=== PATIENT | male | born 1985 | race Caucasian/White ===

== ENCOUNTER 2019-10-23 20:50 | Inpatient (IN) | payer MEDICARE, MEDICAID, SELFPAY ==
[2019-10-23 20:52] VITALS: BP 183/103; PULSE 98; RESP 18; TEMP 36.6; O2SAT 98; BMI 32.5
--- NOTE | 2019-10-23 21:03 | W.ED.PSYCH ---
HPI - Psych General: Chief Complaint: Psychiatric Symptoms Stated Complaint: mhe Time Seen by Provider: 10/23/19 21:03 Source: patient and family Mode of arrival: ambulatory Limitations: no limitations History of Present Illness: HPI Narrative: Patient is a 34-year-old male who presents to ED today along with his family for complaints of paranoid schizophrenia symptoms and suicidal ideations; patient tells me he has been having worsening auditory and visual hallucinations to the point where last night he was having thoughts of wanting to kill himself; patient tells me at one point he was very controlled with his symptoms (for about a decade) on Haldol, Risperdal, Cymbalta. During that period he got , had 3 children, and held down a steady job. Patient states he got approximately 2 years ago and has slowly spiraled since that time. He has been off of his medications and self-medicating with illicit drug use. Patient knows he needs help and would like to get back on his medications. Associated symptoms: Reports auditory hallucinations, visual hallucinations and suicidal ideation; Deny depression or homicidal ideation Review of Systems Const: Denies: fever or chills Card: Denies: chest pain, palpitations, lightheadedness or syncope Resp: Denies: shortness of breath GI: Denies: abdominal pain, nausea, vomiting or diarrhea Skin/Breast: Denies: rash Neuro: Denies: headache Psych: Reports: anxiety, visual hallucinations, auditory hallucinations and suicidal ideation; Denies: depression or homicidal ideation PFSH ED PFSH: Statuses (acute, chronic, etc) shown below reflect problem list status as previously entered and may not be historically accurate Social History Smoking and tobacco status: current every day smoker Physical Exam Const: COMMON NORMALS: no apparent distress, oriented x3, alert and well nourished GENERAL APPEARANCE: cooperative and well kempt ORIENTATION/CONSCIOUSNESS: Yes oriented to person, Yes oriented to place and Yes oriented to time Resp: COMMON NORMALS: normal respiratory effort and clear to auscultation bilaterally AUSCULTATION: clear to auscultation bilaterally Cardio: COMMON NORMALS: regular rate and regular rhythm RATE: regular rate RHYTHM: regular rhythm Neuro: COMMON NORMALS: oriented x3 SENSORIUM/ORIENTATION: Yes alert, Yes oriented to person, Yes oriented to place and Yes oriented to time Psych: COMMON NORMALS: mental status grossly normal, thought process normal, cooperative, affect normal, speech normal and activity/motor behavior normal APPEARANCE: Yes well kempt ACTIVITY/MOTOR BEHAVIOR: Yes appropriate eye contact and No psychomotor agitation SPEECH: Yes normal speech THOUGHT PROCESS: normal thought process MEMORY/COGNITION: Yes memory grossly intact and Yes cognition grossly intact INSIGHT: insight good JUDGEMENT: judgment good MDM - Psych Lab Data: Labs: Lab Results 10/23/19 10/23/19 Range/Units 21:07 21:07 WBC 11.1 H (4.0-10.0) 10^3/ uL RBC 4.65 (4.1-5.3) 10^6/u L Hgb 14.5 (11.7-16.6) g/dL Hct 41.6 L (42.0-52.0) % MCV 89.5 (80-94) fL MCH 31.2 (28.0-34.0) pg MCHC 34.9 (30.0-36.0) g/dL RDW 12.5 (12.1-15.1) % Plt Count 364 (130-400) 10^3/c mm MPV 9.3 (7.4-10.4) fL Neut % (Auto) 55.4 % Lymph % (Auto) 31.9 % [place] % (Auto) 11.4 % Eos % (Auto) 0.2 % Baso % (Auto) 0.8 % Neut # (Auto) 6.1 (1.8-7.7) 10^3/u L Lymph # (Auto) 3.5 (0.8-4.8) 10^3/u L [place] # (Auto) 1.3 H (0.2-0.9) 10^3/u L Eos # (Auto) 0.0 (0.0-0.8) 10^3/u L Baso # (Auto) 0.1 (0.0-0.1) 10^3/u L Nucleated RBC % (a uto) 0 % Nucleated RBCs # 0.0 /100WBC Sodium 140 (136-145) mmol/L Potassium 3.5 (3.5-5.1) mmol/L Chloride 103 (98-107) mmol/L Carbon Dioxide 24 (22-29) mmol/L Anion Gap 16.5 (5-19) BUN 9 (6-20) mg/dL Creatinine 0.8 (0.7-1.2) mg/dL GFR Calculation 109.4 (90-130) mL/min Glucose 154 H (65-115) mg/dL Calcium 10.0 (8.5-10.5) mg/dL Total Bilirubin 0.3 (0.15-1.2) mg/dL AST 27 (0-40) U/L ALT 15 (0-41) U/L Alkaline Phosphata se 100 (40-130) IU/L Total Protein 8.3 (6.6-8.7) g/dL Albumin 4.9 (3.5-5.2) g/dL Globulin 3.4 (1.3-4.6) g/dL Salicylates < 0.3 L (3-10) mg/dL Acetaminophen < 5.0 L (10-30) ug/mL Ethyl Alcohol < 10 (0-10) mg/dL Discharge Plan Discharge Patient Disposition: Xfer Psychiatric Hosp Admit Provider: Cb Mcfarland Clinical Impression: Paranoid schizophrenia Condition: Stable Coding Level of Care Code ED Credit Risk Associate for Jasson Menjivar
[2019-10-23 21:11] LABS: Basophils # 0.1 10^3/uL (0.0-0.1); Basophils % 0.8 %; Eosinophils % 0.2 %; Hematocrit 41.6 % (42.0-52.0); Hemoglobin 14.5 g/dL (11.7-16.6); Lymphocytes # 3.5 10^3/uL (0.8-4.8); Lymphocytes % 31.9 %; Mean Corpuscular HGB Conc 34.9 g/dL (30.0-36.0); Mean Corpuscular Hemoglobin 31.2 pg (28.0-34.0); Mean Corpuscular Volume 89.5 fL (80-94); Mean Platelet Volume 9.3 fL (7.4-10.4); Monocytes # 1.3 10^3/uL (0.2-0.9); Monocytes % 11.4 %; Neutrophils # 6.1 10^3/uL (1.8-7.7); Neutrophils % 55.4 %; Nucleated Red Blood Cells % 0 %; Platelet Count 364 10^3/cmm (130-400); Red Blood Count 4.65 10^6/uL (4.1-5.3); Red Cell Distribution Width 12.5 % (12.1-15.1); White Blood Count 11.1 10^3/uL (4.0-10.0)
--- NOTE | 2019-10-23 21:24 | PC.NURSE ---
Patient states he is seeking help with his paranoia schizophrenia that he has been dealing with since 15 years old. States he had done well on his mental health medications for almost a decade. Patient lapsed in some point and time, was in care home, has been under stress, trying to get life back together. Patient states that he feels if he doesnt get the help, he will intentional hurt himself. Right now he denies being suicidal, just seeking help.
[2019-10-23 21:25] LABS: Alanine Aminotransferase 15 U/L (0-41); Albumin Level 4.9 g/dL (3.5-5.2); Alkaline Phosphatase 100 IU/L (40-130); Anion Gap 16.5 (5-19); Aspartate Amino Transferase 27 U/L (0-40); Blood Urea Nitrogen 9 mg/dL (6-20); Carbon Dioxide 24 mmol/L (22-29); Chloride 103 mmol/L (98-107); Globulin 3.4 g/dL (1.3-4.6); Glomerular Filtration Rate 109.4 mL/min (90-130); Glucose 154 mg/dL (65-115); Potassium 3.5 mmol/L (3.5-5.1); Sodium 140 mmol/L (136-145); Total Bilirubin 0.3 mg/dL (0.15-1.2); Total Protein 8.3 g/dL (6.6-8.7)
[2019-10-23 21:26] LABS: Acetaminophen < 5.0 ug/mL (10-30); Alcohol Level < 10 mg/dL (0-10); Salicylate < 0.3 mg/dL (3-10)
[2019-10-23 22:13] VITALS: BP 138/98; BP 151/103; PULSE 104; PULSE 112; RESP 18; RESP 20; TEMP 36.9; O2SAT 96; O2SAT 97
[2019-10-23 22:17] LABS: Amphetamines Screen Urine Negative (Negative); Barbiturates Screen Urine Negative (Negative); Benzodiazepines Screen Urine Negative (Negative); Cocaine Screen Urine Negative (Negative); PCP Screen Urine Negative (Negative); THC Screen Urine Negative (Negative)
[2019-10-24] MEDS: trazodone 50 mg Tablet PO (00:02)
[2019-10-24 06:00] VITALS: BP 120/73; PULSE 73; RESP 18; TEMP 36.4; O2SAT 96
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
[2019-10-24 14:00] VITALS: BP 117/78; PULSE 117
[2019-10-24] MEDS: buPROPion SR (12 HR) 150 mg Tablet PO (15:29)
[2019-10-24] MEDS: paliperidone ER 6 mg Tablet PO (15:29)
[2019-10-24] MEDS: nicotine 2 mg Gum BUCCAL (16:32)
[2019-10-24 20:40] VITALS: BP 123/82; PULSE 76; RESP 18; TEMP 36.8; O2SAT 98
[2019-10-25 06:00] VITALS: BP 123/87; PULSE 76; RESP 18; TEMP 36.8; O2SAT 98; BMI 30.7
[2019-10-25 06:39] VITALS: BP 155/79; PULSE 63; RESP 17; TEMP 36.5
[2019-10-25] MEDS: buPROPion XL (24 HR) 150 mg Tablet PO (08:24)
[2019-10-25] MEDS: nicotine 2 mg Gum BUCCAL ×2 (08:24→11:22)
[2019-10-25] MEDS: paliperidone ER 6 mg Tablet PO (08:24)
[2019-10-25 13:25] VITALS: BP 136/84
[2019-10-25 14:07] VITALS: BP 133/77; PULSE 77; RESP 17; TEMP 36.9; O2SAT 98
--- NOTE | 2019-10-25 15:03 | P.PN_ITS ---
Subjective NPU Subjective: Interval history: Julien presents today reporting that he feels like the medication has been helpful but he does report still struggling a bit with his anxiety. Discussed the risks, benefits and alternatives of trying a small dose of Neurontin and he understood and agreed to proceed as is documented in his note. We discussed other medications that he is given a tried BuSpar, Inderal and some benzodiazepines and we discussed avoiding drugs with abuse potential given his addictive personality. He reports that he is eating and sleeping okay. He was interested in being able to talk to the social workers tomorrow to try to get assistance in navigating the system. Mental Status Exam MSE Comments: This is an overweight versus obese white male with adequate dress, grooming and eye contact. No abnormal movements except for improving psychomotor retardation. Cooperative with exam in no acute distress. Speech was normal rate and volume. Mood described as still depressed and anxious but hopeful, affect congruent. Thought process organized. Thought content: Patient endorsed having some levofloxacin the last 24 hours we'll reports that he is been trying to be positive about his current situation in the future, but he reports feeling safe on the unit, there were no delusions reported or noted, he denied any auditory or visual hallucinations. Attention and concentration were intact and memory appeared reliable but none were formally tested. He is alert and oriented ?3. Insight and judgment appear fair. Vitals/I&O/Wt Last Vital Signs Temp 98.5 F 10/25/19 14:07 Pulse 77 10/25/19 14:07 Resp 17 10/25/19 14:07 BP 133/77 10/25/19 14:07 Pulse Ox 98 10/25/19 14:07 Weight last 48 hrs Weight 102.965 kg Weight 108.862 kg Data NPU : 10/23/19 21:07 10/23/19 21:07 A&P Additional A&P Information This is a 34-year-old white male with a long history of psychosis, substance abuse, and trauma who presents off of his medication for about a year with increasing depression and paranoia and hopeful to restart medications and stabilize. 1. Continue current medications. Except: 2. Neurontin 100 mg by mouth 3 times a day for anxiety. 3. Encourage individual, group and milieu therapy. 4. Continue every 15 minute checks for safety. 5. Will encourage some kind of sober living aftercare post discharge. Involuntary Hold Information 96 Hour Hold: 96 Hour Involuntary Admission: No Attestations NPU Medical Necessity Statement*: Inpatient hospitalization is medically necessary and the clinically appropriate intervention at this time. We will initiate, monitor and titrate medications to effect. Likely length of stay 2-4 days. Coding Level of Care Code Acute Business Account Manager for Jasson Menjivar
[2019-10-25] MEDS: hyDROXYzine 25 mg Capsule 50 MG PO (15:41)
[2019-10-25] MEDS: gabapentin 100 mg Capsule PO ×2 (15:41→21:03)
--- NOTE | 2019-10-25 15:42 | PC.NURSE ---
Addendum entered by Megan Tang LPN 10/25/19 17:15: PRN MED EFFECTIVE NO FURTHER C/O ANXIETY CURRENTLY Original Note: PRN VISTARIL 50 MG GIVEN PO PER PT C/O STATED ANXIETY. NO OUTWARD S/S OF ANXIETY NOTED AT THIS TIME. WILL CONT TO MONITOR.
[2019-10-25] MEDS: trazodone 50 mg Tablet PO (21:02)
[2019-10-25 21:41] VITALS: BP 122/75; PULSE 76; RESP 19; TEMP 36.8; O2SAT 96
--- NOTE | 2019-10-25 21:58 | PC.NURSE ---
21:02 Patient given PRN Trazodone for sleep.
[2019-10-26 06:00] VITALS: BP 115/78; PULSE 67; RESP 19; TEMP 36.4; O2SAT 97
[2019-10-26] MEDS: nicotine 2 mg Gum BUCCAL ×3 (07:03→17:21)
[2019-10-26] MEDS: paliperidone ER 6 mg Tablet PO (09:32)
[2019-10-26] MEDS: gabapentin 100 mg Capsule PO ×3 (09:32→20:42)
[2019-10-26] MEDS: buPROPion XL (24 HR) 150 mg Tablet PO (09:32)
[2019-10-26 14:00] VITALS: BP 131/86; PULSE 87; RESP 18; TEMP 36.6; O2SAT 99
--- NOTE | 2019-10-26 16:04 | PM.NPN ---
Subjective NPU Subjective: Interval history: Julien presents today reporting that his anxiety is still challenging. We discussed changing the Wellbutrin from the 1 time dose to twice daily even if it is for placebo or psychological benefit. He is just starting to get the Neurontin dosing but he has not seen the impact yet. He does feel the Invega is helping overall. We began discussing his plan for discharge. Mental Status Exam MSE Comments: This is an overweight versus obese white male with adequate dress, grooming and eye contact. No abnormal movements except for improving psychomotor retardation. Cooperative with exam in no acute distress. Speech was normal rate and volume. Mood described as still anxious, affect congruent. Thought process organized. Thought content: Patient denied suicidal or homicidal ideations, there were no delusions reported or noted, he denied any auditory or visual hallucinations. Attention and concentration were intact and memory appeared reliable but none were formally tested. He is alert and oriented ?3. Insight and judgment appear fair. Vitals/I&O/Wt Last Vital Signs Temp 97.8 F 10/26/19 14:00 Pulse 87 10/26/19 14:00 Resp 18 10/26/19 14:00 BP 131/86 10/26/19 14:00 Pulse Ox 99 10/26/19 14:00 Weight last 48 hrs Weight 102.965 kg Data NPU : 10/23/19 21:07 10/23/19 21:07 A&P Additional A&P Information This is a 34-year-old white male with a long history of psychosis, substance abuse, and trauma who presents off of his medication for about a year with increasing depression and paranoia and hopeful to restart medications and stabilize. 1. Continue current medications. Except: 2. Will consider increasing Neurontin tomorrow. 3. Encourage individual, group and milieu therapy. 4. Continue every 15 minute checks for safety. 5. Will encourage some kind of sober living aftercare post discharge. Involuntary Hold Information 96 Hour Hold: 96 Hour Involuntary Admission: No Attestations NPU Medical Necessity Statement*: Inpatient hospitalization is medically necessary and the clinically appropriate intervention at this time. We will initiate, monitor and titrate medications to effect. Likely length of stay 1-3 days. Coding Level of Care Code Acute Implementation Services Analyst for Jasson Menjivar
[2019-10-26] MEDS: buPROPion SR (12 HR) 150 mg Tablet PO (17:01)
[2019-10-26] MEDS: trazodone 50 mg Tablet PO (21:23)
[2019-10-26 22:00] VITALS: BP 155/88; PULSE 87; RESP 19; TEMP 36.8; O2SAT 97
[2019-10-27 06:00] VITALS: BP 119/85; PULSE 88; RESP 19; TEMP 36.9; O2SAT 97
[2019-10-27] MEDS: paliperidone ER 6 mg Tablet PO (08:52)
[2019-10-27] MEDS: buPROPion SR (12 HR) 150 mg Tablet PO ×2 (08:53→17:11)
[2019-10-27] MEDS: gabapentin 100 mg Capsule PO (08:53)
[2019-10-27] MEDS: nicotine 2 mg Gum BUCCAL ×2 (09:03→12:33)
--- NOTE | 2019-10-27 11:30 | PM.NPN ---
Subjective NPU Subjective: Interval history: Julien presents today reporting that he feels that the medications might be helpful and he is feeling optimistic that things will get better. We discussed the fact that this writer producer would not be here tomorrow but that the treatment team has been advised of the plans moving forward. He reports that he is eating and sleeping better and continues to work with the social workers for an appropriate discharge plan. Mental Status Exam MSE Comments: This is an overweight versus obese white male with adequate dress, grooming and eye contact. No abnormal movements except for improving psychomotor retardation. Cooperative with exam in no acute distress. Speech was normal rate and volume. Mood described as less anxious, affect congruent. Thought process organized. Thought content: Patient denied suicidal or homicidal ideations, there were no delusions reported or noted, he denied any auditory or visual hallucinations. Attention and concentration were intact and memory appeared reliable but none were formally tested. He is alert and oriented ?3. Insight and judgment appear fair and improving. Vitals/I&O/Wt Last Vital Signs Temperature 98.5, pulse 88, respirations 19, pulse ox 97%, blood pressure 119/85. Data NPU : 10/23/19 21:07 10/23/19 21:07 A&P Additional A&P Information This is a 34-year-old white male with a long history of psychosis, substance abuse, and trauma who presents off of his medication for about a year with increasing depression and paranoia and hopeful to restart medications and stabilize. 1. Continue current medications. . 2. Encourage individual, group and milieu therapy. 3. Continue every 15 minute checks for safety. 4. Will encourage some kind of sober living aftercare post discharge. Involuntary Hold Information 96 Hour Hold: 96 Hour Involuntary Admission: No Attestations NPU Medical Necessity Statement*: Inpatient hospitalization is medically necessary and the clinically appropriate intervention at this time. We will initiate, monitor and titrate medications to effect. Likely length of stay 1-3 days. Coding Level of Care Code Acute Nutrition Services Worker for Jasson Menjivar
[2019-10-27] MEDS: CLONazepam 0.5 mg Tablet PO (13:28)
[2019-10-27] MEDS: paliperidone ER 3 mg Tablet PO (13:28)
[2019-10-27 13:31] VITALS: BP 130/84; PULSE 91; RESP 20; TEMP 37; O2SAT 97
[2019-10-27] MEDS: gabapentin 300 mg Capsule PO ×2 (14:32→20:13)
[2019-10-27] MEDS: hyDROXYzine 25 mg Capsule 50 MG PO (20:13)
[2019-10-27] MEDS: trazodone 50 mg Tablet PO (20:50)
[2019-10-27] MEDS: OLANZapine ODT 5 MG TABLET PO (21:00)
[2019-10-27 21:11] VITALS: BP 139/86; PULSE 105; RESP 23; TEMP 36.5; O2SAT 96
[2019-10-28 06:00] VITALS: BP 110/73; PULSE 62; RESP 20; TEMP 36.6; O2SAT 95
[2019-10-28] MEDS: buPROPion SR (12 HR) 150 mg Tablet PO ×2 (08:27→16:44)
[2019-10-28] MEDS: paliperidone ER 3 mg Tablet 9 MG PO (08:27)
[2019-10-28] MEDS: gabapentin 300 mg Capsule PO ×3 (08:27→20:59)
[2019-10-28 14:00] VITALS: BP 111/70; PULSE 99; RESP 20; TEMP 36.8; O2SAT 95
[2019-10-28] MEDS: nicotine 2 mg Gum BUCCAL (17:50)
[2019-10-28 19:50] VITALS: BP 153/95; PULSE 108; RESP 20; TEMP 36.9; O2SAT 95
--- NOTE | 2019-10-28 19:58 | P.PN_ITS ---
Subjective NPU Subjective: Interval history: Patient remains profoundly anxious. His paranoia persists; he believes the nurses are constantly talking about him. He has insight necessary to know that this is not likely. He is very uncomfortable but he thinks that he has found the bupropion SR 150 mg twice daily to be helpful and wonders if the dose could be pushed. I see on the formulary that a 200-mg dose is available. We will go to that twice daily starting tomorrow. Mental Status Exam MSE Comments: This is a 34-year-old male who is well muscled, clean and neat. Mood is profoundly anxious and dysphoric. Affect is tense. Thought processes are integrated and free of racing, blocking looseness of association. Cognitive functions are distorted by psychotic symptoms. The patient is paranoid, thinking that the nurses are constantly talking about him. He knows he cannot be that important to every single staff member but still had troubles him greatly. He has the insight to observe the impact of his medicine and the judgment to know that he should ask the doctor if this could be modified. He denies suicidal or homicidal ideation, plan or intent Vitals/I&O/Wt Last Vital Signs Temp 98.4 F 10/28/19 19:50 Pulse 108 H 10/28/19 19:50 Resp 20 H 10/28/19 19:50 BP 153/95 10/28/19 19:50 Pulse Ox 95 10/28/19 19:50 Data NPU : 10/23/19 21:07 10/23/19 21:07 A&P Additional A&P Information This is a 34-year-old white male with a long history of psychosis, substance abuse, and trauma who presents off of his medication for about a year with increasing depression and paranoia and hopeful to restart medications and stabilize. 1. Increase bupropion SR to 200 mg twice daily (maximum dose being 450 mg p.o. daily) 2. Assist the patient with discharge planning for sober living facility. 3. Encourage individual, group and milieu therapy. 4. Continue every 15 minute checks for safety. Involuntary Hold Information 96 Hour Hold: 96 Hour Involuntary Admission: No Attestations NPU Medical Necessity Statement*: This patient is in the throes of his psychotic episode. I anticipate 7-10 midnights additional hospitalization. Coding Level of Care Code Acute Child Welfare Caseworker for Jasson Menjivar
[2019-10-28] MEDS: trazodone 50 mg Tablet PO (20:59)
[2019-10-28] MEDS: OLANZapine ODT 5 MG TABLET PO (20:59)
[2019-10-29 06:00] VITALS: BP 113/74; PULSE 73; RESP 16; O2SAT 97
[2019-10-29] MEDS: gabapentin 300 mg Capsule PO ×3 (08:34→21:18)
[2019-10-29] MEDS: buPROPion SR (12 HR) 100 mg Tablet 200 MG PO ×2 (08:34→17:09)
[2019-10-29] MEDS: paliperidone ER 3 mg Tablet 9 MG PO (08:34)
[2019-10-29] MEDS: nicotine 2 mg Gum BUCCAL ×3 (12:42→18:55)
[2019-10-29 14:00] VITALS: BP 133/70; PULSE 111; RESP 20; TEMP 36.7; O2SAT 97
--- NOTE | 2019-10-29 14:13 | PC.SOCIAL ---
Patient accepted at [facility] in [place], [place] Address is [address] [place] [id number]. (P) [phone] (F) [phone] Prescriptions called to [facility] in [place], [place]
--- NOTE | 2019-10-29 14:46 | PC.SOCIAL ---
Important Medicare Message Reviewed page 2 Important Medicare Message with patient. Verbalized understand and signed page 2. Original to patient and copy in chart.
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
[2019-10-29 20:18] VITALS: BP 128/45; PULSE 93; RESP 18; TEMP 36.8; O2SAT 95
[2019-10-29] MEDS: OLANZapine ODT 5 MG TABLET PO (21:18)
[2019-10-29] MEDS: trazodone 50 mg Tablet PO ×2 (21:38→23:00)
[2019-10-30 06:00] VITALS: BP 102/72; PULSE 72; RESP 16; TEMP 36.6; O2SAT 96
[2019-10-30 07:45] VITALS: BP 102/72; PULSE 72; RESP 16; TEMP 36.6; O2SAT 96
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
== END 2019-10-30 08:30 | disposition home or self-care (01) | DRG 881 ==
LOC: ER 21:43 → NP 22:02
PROVIDERS: Admitting Provider Psychiatry & Neurology Psychiatry; Emergency Provider Physician Assistant; Visit Provider Psychiatry & Neurology Psychiatry
DX: F32.9 Major depressive disorder, single episode, unspecified (principal); R45.851 Suicidal ideations; F43.11 Post-traumatic stress disorder, acute; F15.90 Other stimulant use, unspecified, uncomplicated; F17.210 Nicotine dependence, cigarettes, uncomplicated
CPT/HCPCS: 12345; 80053; 80307; 85025; 99284